=== PATIENT | female | born 1985 | race Hispanic/Latino ===

== ENCOUNTER 2016-10-24 14:13 | Emergency (ER) | payer MEDICAID ==
[2016-10-24 14:48] VITALS: BP 124/85
[2016-10-24] MEDS ORDERED: MOTRIN PO ONE (17:23)
[2016-10-24] MEDS ORDERED: NORCO 5/325 PO ONE ×2 (17:23→19:57)
--- NOTE | 2016-10-24 18:07 | XRay Report ---
FINAL REPORT PROCEDURE: XR WRIST 3 RT TECHNIQUE: RIGHT wrist radiographs, including AP, lateral, and oblique views. CPT 65988 HISTORY: Pain and swelling. COMPARISON: No prior studies are available for comparison. FINDINGS: Fracture (s) and/or Dislocation(s): Lucency through the ulnar styloid. Although could be projectional consider possible 4 millimeter density about the trapezium/trapezoid. Alignment: Normal . Joint space(s): Normal . Soft tissues: Normal . Bone mineralization: Normal . Foreign bodies: None . IMPRESSION: Age-indeterminate ulnar styloid fracture. Possible small density about the trapezium/trapezoid. This could be positional, but consider further evaluation and followup including cross-sectional imaging if there is concern for degenerative and/or age indeterminate posttraumatic change.
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
--- NOTE | 2016-10-24 19:43 | Cat Scan Report ---
FINAL REPORT EXAM: CT UPPER EXTREM RT WO CON HISTORY: abnormal xr TECHNIQUE: Unenhanced CT of the right wrist at 1.25 mm axial intervals. Coronal and sagittal reconstruction was also performed. PRIORS: Right wrist x-rays 10/24/2016 FINDINGS: Bony structures: There is a small ulnar styloid process fracture. No abnormality of involving the trapezoid/trapezium is seen. No other evidence for acute fracture or dislocation is seen. Bony mineralization is normal. Joint spaces: Joint spaces are maintained. Soft tissues: No evidence for soft tissue swelling is seen. No radiopaque foreign bodies are noted. IMPRESSION: Small ulnar styloid process fracture. No other acute soft tissue or bony abnormality identified in the right wrist.
[2016-10-24] MEDS ORDERED: TRIPLE ANTIBIOTIC TP ONE (20:02)
== END 2016-10-24 20:57 | disposition home or self-care (01) ==
LOC: ED 14:13
DX: S69.91XA Unspecified injury of right wrist, hand and finger(s), initial encounter (principal); F17.200 Nicotine dependence, unspecified, uncomplicated; V49.49XA Driver injured in collision with other motor vehicles in traffic accident, initial encounter; Y93.9 Activity, unspecified; Y92.9 Unspecified place or not applicable; Y99.9 Unspecified external cause status
CPT/HCPCS: 81025; 99285; A6250